=== PATIENT | female | born 1955 | race Caucasian/White ===

== ENCOUNTER 2017-10-31 06:50 | Day surgery (SDC) | payer OTHER ==
[2017-10-31] MEDS ORDERED: LIDOCAINE 4% SOLUTION 50 ML BTL ×2 (08:34→08:42)
[2017-10-31] MEDS ORDERED: MIDAZOLAM 1 MG/ML 2 ML INJ ×2 (09:35)
[2017-10-31] MEDS ORDERED: FENTAnyl 50 MCG/ML VIAL (09:35)
== END 2017-10-31 10:51 | disposition home or self-care (01) ==
LOC: GIL 06:50
DX: Z12.11 Encounter for screening for malignant neoplasm of colon (principal); K21.0 Gastro-esophageal reflux disease with esophagitis; K29.50 Unspecified chronic gastritis without bleeding; K57.90 Diverticulosis of intestine, part unspecified, without perforation or abscess without bleeding; K64.4 Residual hemorrhoidal skin tags
CPT/HCPCS: 43239; 88305; 88312; 88313